=== PATIENT | female | born 1980 | race African-American/Black ===

== ENCOUNTER 2020-03-20 21:34 | Observation (INO) ==
[2020-03-20 22:13] LABS: Basophils % 0.4 % (0.0-0.8); Eosinophils # 0.1 10*3/uL (0.0-0.87); Eosinophils % 1.5 % (0.00-10.9); Hematocrit 39.3 VOL% (35.7-47.0); Hemoglobin 13.3 GM/DL (12.0-16.0); Immature Granulocytes % 0.2 %; Immature Granulocytes Absolute 0.01 #; Lymphocytes # 1.3 10*3/uL (1.4-4.0); Mean Corpuscular HGB Conc 33.8 GM/DL (32-36); Mean Corpuscular Volume 82.4 FL (87-102); Monocytes % 8.7 % (1.7-12.7); Neutrophils % 60.2 % (38.7-73.9); Platelet Count 294 T/CUMM (130-400); Red Blood Count 4.77 MC/CUMM (3.8-5.5); Red Cell Distribution Width 11.9 % (9.3-17.3); White Blood Count 4.6 T/CUMM (4-12)
[2020-03-20 22:28] LABS: PT Patient Result 10.7 SECS (9.8-11.9); Partial Thromboplastin Time 25.6 SECS (23.9-33.8)
[2020-03-20 22:33] LABS: Alanine Aminotransferase 17 U/L (13-56); Albumin 3.6 G/DL (3.4-5.0); Alkaline Phosphatase 76 U/L (45-117); Aspartate Amino Transferase 10 U/L (0-37); Bilirubin,Total < 0.39 MG/DL (0.2-1.0); Blood Urea Nitrogen 6 MG/DL (7-18); Calcium 9.3 MG/DL (8.5-10.1); Estimated Glom Filtration Rate 85 ML/MIN; Glucose 385 MG/DL (74-106); Total Protein 7.6 G/DL (6.4-8.3)
[2020-03-20 23:12] LABS: Bacteria,Urine Occasional /HPF (Few); Bilirubin,Urine Negative (Negative); Blood, Urine Negative (Negative); Glucose,Urine (UA) >=500 mg/dL (Negative); Ketones,Urine Negative (Negative); Nitrite,Urine Negative (Negative); Protein,Urine Negative; RBC,Urine 1 /HPF (0-4); Squamous Epithelial Cell,Urine Occasional /HPF (0-10); Urine Appearance CLEAR (Clear); Urine Color Straw (Yellow); Urine Specific Gravity 1.023 (1.001-1.035); Urine Urobilinogen < 2.0 EU/DL (0.2-1.0); WBC,Urine 2 /HPF (0-6)
[2020-03-20 23:13] LABS: Barbiturates Screen,Urine Negative (Negative); Benzodiazepines Screen,Urine Negative (Negative); Cannabinoid Screen,Urine Negative (Negative); Opiate Screen,Urine Negative (Negative); Phencyclidine Screen,Urine Negative (Negative)
[2020-03-21] MEDS ORDERED: DEXTROSE 50% 25 GM/50 ML VIAL IV PRN (00:44)
[2020-03-21] MEDS ORDERED: DEXTROSE 50% 25 GM/50 ML SYRINGE IV PRN (00:44)
[2020-03-21] MEDS ORDERED: ONDANSETRON 4 MG/2 ML VIAL IV PRN (00:44)
[2020-03-21] MEDS ORDERED: GLUCAGON 1 MG VIAL IM PRN (00:44)
[2020-03-21] MEDS: INSULIN REGULAR 100 UNIT/ML SUBCUT SCH ×5 (02:30→20:12)
[2020-03-21] MEDS: ENOXAPARIN 40 MG/0.4 ML SYRINGE SUBCUT SCH (06:22)
[2020-03-21] MEDS: GABAPENTIN 100 MG CAPSULE PO SCH ×3 (09:35→20:12)
[2020-03-21] MEDS: PANTOPRAZOLE 40 MG TABLET PO SCH (09:35)
[2020-03-22] MEDS ORDERED: traMADol 50 MG TABLET PO ONE (00:47)
[2020-03-22] MEDS: ENOXAPARIN 40 MG/0.4 ML SYRINGE SUBCUT SCH (05:07)
[2020-03-22] MEDS: INSULIN REGULAR 100 UNIT/ML SUBCUT SCH (08:34)
[2020-03-22] MEDS: PANTOPRAZOLE 40 MG TABLET PO SCH (08:36)
[2020-03-22] MEDS: GABAPENTIN 100 MG CAPSULE PO SCH (08:36)
[2020-03-22 08:51] VITALS: BP 100/65
== END 2020-03-22 10:26 | disposition home or self-care (01) ==
LOC: N.EDINP 21:34 → N.ED 21:34 → N.EDINP 03-21 15:51 → N.TELEN 03-21 16:19
PROVIDERS: ADMIT Family Medicine; ATTEND Family Medicine